=== PATIENT | female | born 1960 | race Caucasian/White ===

== ENCOUNTER 2016-09-09 07:13 | Emergency (ER) | payer MEDICARE, OTHER ==
--- NOTE | ~2016-09-09 | CT4 ---
[facility] A Service of [facility] RADIOLOGY TEXT RESULTS PATIENT: CAROLYN TAPIA LOCATION: [facility] : 56 UNIT #: [id number] AGE: [address]: Shaji Cuellar DO SEX: F ORDER DR: [id number] [facility] [address] [place], [place] [address] [id number] E MR#: [id number] Acc #: [id number] NAME: CAROLYN TAPIA : 1960 SEX: F STUDY DATE/TIME: 09/09/2016 09:18 UNIT: [facility] ROOM: STUDY DESCRIPTION: CT Abd and Pelv Wo Cont Attending Physician: Shaji Cuellar D.O. Ordering Physician: Shaji Cuellar D.O. Primary Care Physician: [facility], [facility]. MEDICAL IMAGING REPORT This report is preliminary unless electronic signature is present EXAM CT abdomen and pelvis without contrast, 09/09/2016 09:18 hours HISTORY 56-year-old woman with lower abdominal pain and nausea and vomiting this morning. COMPARISON CT abdomen and pelvis, 08/09/2011 TECHNIQUE Helical noncontrasted images were obtained from the lung bases through the pubic symphysis without oral or intravenous contrast. Sagittal and coronal reconstructions were performed. Total exam DLP 306 mGy-cm. This CT exam was performed with one or more of the following radiation dose reduction techniques: automatic exposure control, adjustment of mA and/or kV according to patient size, and iterative reconstruction. FINDINGS There is subpleural interstitial change with small peripheral blebs or honeycombing in both lower lobes appearing increased from 08/09/2011. Correlate with any respiratory symptoms. Consider pulmonary function test to assess for restrictive lung disease. Images through the abdomen without contrast demonstrate a normal appearance to the liver, spleen, pancreas. The gallbladder is mildly distended with no definite stones or bile duct dilatation. The kidneys demonstrate no mass. There is streak artifact on the images through the kidneys which makes assessment difficult. Question mild pelviectasis in the left kidney. Previous stone seen in the mid-left kidney on 08/09/2011 is no longer seen. There is no definite ureterectasis although there does appear to be at least one if not two or three punctate stones at the STS. [facility] A Service of [facility] & [facility] RADIOLOGY TEXT RESULTS PATIENT: CAROLYN TAPIA LOCATION: [facility] : 56 UNIT #: [id number] AGE: [address]: Shaji Cuellar DO SEX: F ORDER DR: ureterovesical junction. Correlate with any history of hematuria. The stomach and small bowel are unremarkable. There is moderate stool in the right colon with no distension or colonic wall thickening. CT pelvis demonstrates no mass or free fluid. Pelvic phleboliths are present. IMPRESSION 1. The exam is limited by the lack of oral and intravenous contrast and the lack of intraabdominal fat. 2. There is interstitial change at both lung bases with peripheral blebs or honeycombing. Correlate with any respiratory symptoms. Consider correlation with pulmonary function test to exclude restrictive lung disease. 3. There is streak artifact due to the hardware in the lumbar spine. This makes assessment of the kidneys and ureters difficult. Previous stone seen in the anterior mid-left kidney is no longer seen. Question is raised of mild pelviectasis. 4. There is no definite ureterectasis although there appears to be at least one if not two or three punctate stones at the left ureterovesical junction. Correlate with urinalysis and presence of hematuria. 5. Moderate stool in the right colon. No colonic or small bowel wall thickening is seen. STAT * RESULT Dictated by... Antonella Perkins M.D. THIS IS AN ELECTRONICALLY VERIFIED REPORT Antonella Perkins M.D. at 09/09/2016 2:30 PM Maurilio TD: 09/09/2016 10:02 JOB #: [id number] MEDICAL IMAGING REPORT Page 1 of 1 COPY
[~2016-09-09 07:13] MED LIST: ALBUTEROL 0.5ML IH; ASPIRIN81 M2; ATARAX PO; FELDENE10 MG PO; FLAGYL PO; GABAPENTIN600 MG; GABAPENTIN600 MG PO; IBUPROFEN800 MG PO; LEVAQUIN PO; LEVOTHYROXINE100 MC1 PO; LOMOTIL TABLET1 TAB PO; NASONEX; NASONEX17 GM IH; NEURONTIN PO; NORCO 10/3251 TAB; NORVASC2.5 MG; PHENERGAN PO; PHENERGAN SUPP25 MG PR; PHENERGAN12.5 MG/SU RC; PHENERGAN25 MG PO; PIROXICAM10 MG PO; PRILOSEC PO; PROZAC PO; SYNTHROID PO; TALWIN NX TABLE1 TAB PO; TALWIN NX50 MG TAB PO; TRAZODONE; VICODIN 5/1 TAB 5/50 PO; ZANAFLEX PO; ZOFRAN8 MG PO
[2016-09-09 07:58] LABS: BASOPHIL# 0.2 X10e3 (0-0.3); BASOPHIL% 1.5 % (0-2.5); EOSINOPHIL# 0.1 X10e3 (0-0.7); EOSINOPHIL% 0.5 % (0.0-7.0); HEMATOCRIT 41.9 % (35.0-45.0); HEMOGLOBIN 14.1 gm/dL (12.0-16.0); LYMPHOCYTE# 1.7 X10e3 (1.0-3.5); MEAN CELL VOLUME 93.5 FL (83-96); MEAN CORPUSCULAR HEMOGLOBIN 31.3 PG (28-34); MEAN CORPUSCULAR HGB CONC 33.5 g/dL (30-36); MEAN PLATELET VOLUME 8.3 FL (6.5-11.5); MONOCYTE# 1.4 X10e3 (0-1.0); MONOCYTE% 11.8 % (3.0-12.0); NEUTROPHIL# 8.3 X10e3 (1.5-7.1); NEUTROPHIL% 71.2 % (40-75); PLATELET COUNT 256 X10e3 (140-420); RED BLOOD COUNT 4.48 X10e (3.90-5.30); RED CELL DISTRIBUTION WIDTH 13.7 % (11.0-15.5); WHITE BLOOD COUNT 11.7 X10e3 (4.0-10.5)
[2016-09-09 08:00] LABS: DIFF IND NO
[2016-09-09 08:42] LABS: ALBUMIN SERUM 4.4 g/dL (3.5-5.0); BILIRUBIN, DIRECT 0.1 mg/dL (0.0-0.2); BILIRUBIN,INDIRECT 0.7 mg/dL (0.0-0.9); BILIRUBIN,TOTAL 0.8 mg/dL (0.2-2.0); BUN/CREATININE RATIO 35.38; CALCIUM SERUM 8.9 mg/dL (8.4-10.2); CREATININE SERUM 1.3 mg/dL (0.6-1.4); GLOM FILT RATE Estimated 45.2 mL/min (>60); PROTEIN TOTAL SERUM 7.6 g/dL (6.0-8.3)
[2016-09-09 10:14] LABS: URINE SOURCE CLEAN CATCH
[2016-09-09 10:23] LABS: URINE APPEARANCE CLEAR; URINE BILIRUBIN NEG (NEG); URINE BLOOD TRACE (NEG); URINE COLOR YELLOW; URINE GLUCOSE NEG (NEG); URINE KETONE NEG (NEG); URINE LEUKOCYTE ESTERASE NEG (NEG); URINE NITRATE NEG (NEG); URINE PH 5.5 (5-8); URINE PROTEIN NEG (NEG); URINE SPECIFIC GRAVITY 1.008 (1.003-1.035); URINE UROBILINOGEN 0.2 MG/DL (NEG)
[2016-09-09 10:26] LABS: URBCS1 AUWI 0-2 /[HPF] (0-2); URINE BACTERIA AUWI NEG (NEGATIVE); URINE SQUAMOUS EPITHELIAL CELL NONE SEEN /[HPF]; UWBCS1 AUWI 0-2 (0-5)
[2016-09-09 10:40] LABS: AMPHETAMINE NEG (NEG); BARBITURATES NEG (NEG); BENZODIAZEPINES NEG (NEG); COCAINE NEG (NEG); MARIJUANA NEG (NEG); OPIATES POS (NEG); TRICYCLIC ANTIDEPRESSANTS NEG (NEG); U METHADONE NEG (NEG)
[2016-09-09 10:49] LABS: CULTURE INDICATED? NO
== END 2016-09-09 14:17 | disposition home or self-care (01) ==
LOC: CED 07:13
PROVIDERS: Emergency Medicine
DX: R10.9 Unspecified abdominal pain (principal); R11.2 Nausea with vomiting, unspecified; R19.7 Diarrhea, unspecified; E87.6 Hypokalemia; F12.10 Cannabis abuse, uncomplicated; E03.9 Hypothyroidism, unspecified; I10 Essential (primary) hypertension; J44.9 Chronic obstructive pulmonary disease, unspecified; F17.200 Nicotine dependence, unspecified, uncomplicated; Z79.82 Long term (current) use of aspirin; Z79.899 Other long term (current) drug therapy; Z88.0 Allergy status to penicillin; Z88.2 Allergy status to sulfonamides
CPT/HCPCS: 36415; 74176; 80048; 80076; 80307; 81003; 83690; 84484; 85025; 96361; 96372; 96374; 96375; 99284; J0500; J2405; J2550

== ENCOUNTER → 2016-11-01 | Outpatient (CLI) | payer MEDICARE, OTHER ==
--- NOTE | ~2016-11-01 | CT137 ---
[facility] A Service of [facility] RADIOLOGY TEXT RESULTS PATIENT: CAROLYN TAPIA [facility] : 56 UNIT #: [id number] AGE: [address]: Julia Villarreal MD SEX: F ORDER DR: [id number] [place] [id number] [facility] [place] [facility]. [place], [place] [address] [id number] O MR#: [id number] Acc #: [id number] NAME: CAROLYN TAPIA : 1960 SEX: F STUDY DATE/TIME: 11/01/2016 15:59 UNIT: [facility] ROOM: STUDY DESCRIPTION: CT Lung Screening annual Attending Physician: Julia Villarreal M.D. Referring Physician: Julia Villarreal M.D. Ordering Physician: Julia Villarreal M.D. [facility]AG[facility] REPORT This report is preliminary unless electronic signature is present EXAM CT chest INDICATIONS Lung cancer screening. 56-year-old female is a current smoker with a 44-[id number]-pylb history of smoking. TECHNIQUE CT of the thorax without contrast. Coronal and sagittal reconstructions were obtained. Exam was performed as a low-dose chest CT utilizing lung cancer screening protocol. This CT exam was performed with one or more of the following radiation dose reduction techniques: Automatic exposure control, adjustment of mA and/or kV according to patient size, and iterative reconstruction. CTDI volume 3 mGy. DLP 111.76 mGy/cm. COMPARISON Lung cancer screening 09/18/2015. FINDINGS This is a benign lung cancer screening. No suspicious pulmonary nodules are identified. There is moderate centrilobular and paraseptal emphysema and some chronic interstitial changes. This is similar to the prior study. Mild bronchial wall thickening is noted throughout the lungs. There is some mild low-attenuation mucous plugging within both lungs, predominantly in the lower lobes. No pathologically enlarged mediastinal or hilar lymph nodes. No thoracic aortic aneurysm or dissection. No pericardial or pleural effusion. [facility] A Service of [facility] RADIOLOGY TEXT RESULTS PATIENT: CAROLYN TAPIA LOCATION: [facility] : 56 UNIT #: [id number] AGE: [address]: Julia Villarreal MD SEX: F ORDER DR: IMPRESSION 1. Benign lung cancer screening. 2. Mild bronchial wall thickening as well as several areas of mild low-attenuation mucous plugging. This is most commonly associated with an acute or chronic bronchitis. Please correlate for any acute symptoms. 3. Paraseptal and centrilobular emphysema and some chronic interstitial changes. ACR Lung-RADS classification 2: Benign examination. RECOMMENDATIONS Annual lung cancer screening with a low-dose chest CT. Dictated by... Clarence Stephenson M.D. THIS IS AN ELECTRONICALLY VERIFIED REPORT Clarence Stephenson M.D. at 11/05/2016 11:09 AM CRISTINO/jaquan TD: 11/05/2016 09:11 JOB #: [id number] MEDICAL IMAGING REPORT Page 1 of 1 COPY
== END | disposition home or self-care (01) ==
LOC: CCAT 14:44
DX: F17.210 Nicotine dependence, cigarettes, uncomplicated (principal)
CPT/HCPCS: G0297